=== PATIENT | male | born 2000 | race African-American/Black ===

== ENCOUNTER 2025-04-17 08:54 | Inpatient (IN) | payer SELFPAY ==
[2025-04-17] MEDS ORDERED: Milk Of Magnesia 30 ML UDCUP ONE (09:51)
[2025-04-17] MEDS ORDERED: Lidocaine Viscous Sol 2% 15 ml UD Cup ONE (09:51)
[2025-04-17 10:18] LABS: #Basophils 0.03 10x3/uL (0.0-0.2); #Eosinophils 0.19 10x3/uL (0.0-0.5); #Monocytes 0.40 10x3/uL (0.0-1.1); #Neutrophils 2.97 10x3/uL (1.5-8.4); %Basophils 0.6 % (0.0-2.0); %Eosinophils 3.8 % (0.0-6.0); %Lymphocytes 28.4 % (18.0-47.0); %Monocytes 7.9 % (0.0-10.0); %Neutrophils 58.9 % (40.0-75.0); Hematocrit 49.4 % (38.8-50.0); Hemoglobin 16.6 g/dL (13.5-17.5); Mean Corpuscular Hemoglobin 29.3 pg (27.0-33.0); Mean Corpuscular Volume 87.3 fL (81.2-95.1); Platelet Count 264 10x3/uL (150-450); Red Blood Cell (RBC) Count 5.66 10x6/uL (4.32-5.72); White Blood Cell (WBC) Count 5.04 10x3/uL (3.5-10.5)
[2025-04-17 10:40] LABS: ALT (SGPT) 633 U/L (Less than 45); AST (SGOT) 412 U/L (11-34); Albumin 4.0 g/dL (3.1-4.5); Alkaline Phosphatase 197 U/L (40-110); Anion Gap 14 mmol/L (10-20); BUN (Urea Nitrogen) 15 mg/dL (8.9-20.6); Bilirubin, Total 3.1 mg/dL (0.3-1.2); Calc. Creatinine Clearance 0 mL/min (70-130); Calcium 9.6 mg/dL (7.8-10.44); Carbon Dioxide 25 mmol/L (22-29); Chloride 104 mmol/L (98-107); Globulin 3.6 g/dL (2.4-3.5); Glucose 87 mg/dL (70-105); Potassium 4.4 mmol/L (3.5-5.1); Sodium 139 mmol/L (136-145); Troponin I Less than 0.010 ng/mL (< 0.028)
[2025-04-17 12:17] LABS: Hep B Surf Ag Non-Reactive S/CO (NonReactive)
[2025-04-17 14:41] LABS: Acetaminophen Less than 10 mcg/mL (Less than 10); CK (CPK) 111 U/L (30-200); Lipase 80 U/L (8-78); Salicylate Less than 8.0 mg/dL (Less than 8.0)
[2025-04-17 15:03] LABS: D-Dimer Test 0.28 mcg/mL (0.19-0.50); INR-International Normal Ratio 1.0; PTT 28.5 sec (22.0-33.0); Prothrombin Time 11.0 sec (9.5-12.1)
[2025-04-17 15:13] LABS: Hep A IgM AB NONREACTIVE (NonReactive); Hep A IgM S/CO 0.22 S/CO (0-0.79); Hep B Core IgM Index 0.10 S/CO (0-0.79); Hep C IgG Ab NONREACTIVE S/CO (NonReactive); Hep C Index 0.10 S/CO (0-0.79)
[2025-04-17] MEDS ORDERED: Senokot S 8.6-50 MG TAB PO PRN (15:47)
[2025-04-17] MEDS ORDERED: Melatonin 3 MG TAB PO PRN (15:47)
[2025-04-17] MEDS ORDERED: Electrolyte Replacement Protocol 1 EACH FS SCH (16:00)
[2025-04-17 16:59] LABS: HIV (1/2) Antibody/Antigen NONREACTIVE (NonReactive); HIV 1/2 INDEX 0.05 S/CO (<1.00)
[2025-04-17 17:27] VITALS: BMI 26.8
[2025-04-17] MEDS: Ketorolac Tromethamine 30 MG (1 mL) VIAL IVP PRN (18:04)
[2025-04-18 06:14] LABS: #Basophils 0.04 10x3/uL (0.0-0.2); #Eosinophils 0.17 10x3/uL (0.0-0.5); #Monocytes 0.38 10x3/uL (0.0-1.1); #Neutrophils 2.32 10x3/uL (1.5-8.4); %Basophils 0.9 % (0.0-2.0); %Eosinophils 3.8 % (0.0-6.0); %Lymphocytes 35.0 % (18.0-47.0); %Monocytes 8.5 % (0.0-10.0); %Neutrophils 51.6 % (40.0-75.0); Hematocrit 47.7 % (38.8-50.0); Hemoglobin 15.7 g/dL (13.5-17.5); Mean Corpuscular Hemoglobin 29.0 pg (27.0-33.0); Mean Corpuscular Volume 88.0 fL (81.2-95.1); Platelet Count 219 10x3/uL (150-450); Red Blood Cell (RBC) Count 5.42 10x6/uL (4.32-5.72); White Blood Cell (WBC) Count 4.49 10x3/uL (3.5-10.5)
[2025-04-18 06:30] LABS: ALT (SGPT) 465 U/L (Less than 45); AST (SGOT) 260 U/L (11-34); Albumin 3.4 g/dL (3.1-4.5); Alkaline Phosphatase 165 U/L (40-110); Anion Gap 10 mmol/L (10-20); BUN (Urea Nitrogen) 14 mg/dL (8.9-20.6); Bilirubin, Total 1.8 mg/dL (0.3-1.2); Calc. Creatinine Clearance 125 mL/min (70-130); Calcium 9.1 mg/dL (7.8-10.44); Carbon Dioxide 30 mmol/L (22-29); Chloride 103 mmol/L (98-107); Globulin 3.1 g/dL (2.4-3.5); Glucose 100 mg/dL (70-105); Iron 93 ug/dL (65-175); Iron 94 ug/dL (65-175); Iron Binding Capacity, Total 293 mcg/dL (261-462); Iron Binding Capacity, Total 294 mcg/dL (261-462); Potassium 3.9 mmol/L (3.5-5.1); Sodium 139 mmol/L (136-145)
[2025-04-18] MEDS: Enoxaparin 40 MG (0.4 mL) SYRINGE SC SCH (08:58)
[2025-04-18 13:21] LABS: Immunoglob - A (Total IgA) 157 mg/dL (63-484); Immunoglob - G (Total IgG) 1182 mg/dL (540-1822); Immunoglob - M (Total IgM) 104 mg/dL (22-240)
[2025-04-18] MEDS: Guaifenesin DM 100-10/5 ML UDCUP PO PRN (17:23)
[2025-04-18] MEDS: Ondansetron PF 4 MG/2 ML Vial IVP PRN (20:45)
[2025-04-18] MEDS: Milk Of Magnesia 30 ML UDCUP PO SCH ×2 (21:06→21:32)
[2025-04-18] MEDS: guaiFENesin/Codeine Phosphate 100 mg/10 mg 5 ml UD Cup PO PRN (21:16)
[2025-04-18] MEDS: Pantoprazole 40 MG VIAL IVP SCH (21:17)
[2025-04-19 05:34] LABS: ALT (SGPT) 415 U/L (Less than 45); AST (SGOT) 192 U/L (11-34); Albumin 3.4 g/dL (3.1-4.5); Alkaline Phosphatase 176 U/L (40-110); Anion Gap 12 mmol/L (10-20); BUN (Urea Nitrogen) 10 mg/dL (8.9-20.6); Bilirubin, Total 1.0 mg/dL (0.3-1.2); Calc. Creatinine Clearance 146 mL/min (70-130); Calcium 9.0 mg/dL (7.8-10.44); Carbon Dioxide 27 mmol/L (22-29); Chloride 105 mmol/L (98-107); Globulin 3.1 g/dL (2.4-3.5); Glucose 82 mg/dL (70-105); Potassium 4.0 mmol/L (3.5-5.1); Sodium 140 mmol/L (136-145)
[2025-04-20 04:07] LABS: #Basophils 0.04 10x3/uL (0.0-0.2); #Eosinophils 0.25 10x3/uL (0.0-0.5); #Monocytes 0.52 10x3/uL (0.0-1.1); #Neutrophils 4.41 10x3/uL (1.5-8.4); %Basophils 0.6 % (0.0-2.0); %Eosinophils 3.5 % (0.0-6.0); %Lymphocytes 27.7 % (18.0-47.0); %Monocytes 7.2 % (0.0-10.0); %Neutrophils 60.9 % (40.0-75.0); Hematocrit 44.2 % (38.8-50.0); Hemoglobin 15.0 g/dL (13.5-17.5); Mean Corpuscular Hemoglobin 29.5 pg (27.0-33.0); Mean Corpuscular Volume 87.0 fL (81.2-95.1); Platelet Count 208 10x3/uL (150-450); Red Blood Cell (RBC) Count 5.08 10x6/uL (4.32-5.72); White Blood Cell (WBC) Count 7.23 10x3/uL (3.5-10.5)
[2025-04-20 04:28] LABS: ALT (SGPT) 344 U/L (Less than 45); AST (SGOT) 126 U/L (11-34); Albumin 3.3 g/dL (3.1-4.5); Alkaline Phosphatase 159 U/L (40-110); Anion Gap 11 mmol/L (10-20); BUN (Urea Nitrogen) 8 mg/dL (8.9-20.6); Bilirubin, Total 0.6 mg/dL (0.3-1.2); Calc. Creatinine Clearance 123 mL/min (70-130); Calcium 8.8 mg/dL (7.8-10.44); Carbon Dioxide 30 mmol/L (22-29); Chloride 103 mmol/L (98-107); Globulin 3.0 g/dL (2.4-3.5); Glucose 130 mg/dL (70-105); Potassium 4.1 mmol/L (3.5-5.1); Sodium 140 mmol/L (136-145)
[2025-04-20 10:37] LABS: CMV IgM AB Less than 30.0 AU/mL (0.0-29.9)
[2025-04-20 22:41] VITALS: BP 150/86; TEMP 98.6
[2025-04-21 17:38] LABS: Smooth Muscle Total ABS 8.0 Units (0-19)
[2025-04-22 11:37] LABS: ANA Symphony (Qualitative) Negative (Negative); ANA Symphony (Quantitative) 0.2 Ratio (< 0.7 Negative); EliA Vaculitis New Method **** NEW METHOD ****; Mitochondrial Ab 1.0 U/mL (<4 Negative); dsDNA IgG Antibody 1.4 IU/mL (<10 Negative)
[2025-04-22 12:14] LABS: Epstein Barr Virus PCR Negative (Negative)
== END 2025-04-20 12:15 | disposition home or self-care (01) | DRG 948 ==
LOC: CSHERS 08:54 → CSHTELE 14:36
PROVIDERS: ADMIT Student in an Organized Health Care Education/Training Program; ATTEND Family Medicine
DX: R74.01 Elevation of levels of liver transaminase levels (principal); E80.6 Other disorders of bilirubin metabolism; R10.13 Epigastric pain; R07.9 Chest pain, unspecified; F41.9 Anxiety disorder, unspecified; J45.909 Unspecified asthma, uncomplicated; F17.290 Nicotine dependence, other tobacco product, uncomplicated; R06.02 Shortness of breath
CPT/HCPCS: 36415; 71046; 74181; 76376; 76705; 80053; 80074; 80307; 82103; 82390; 82550; 82728; 83516; 83540; 83550; 83690; 84484; 85025; 85379; 85610; 85730; 86015; 86038; 86225; 86645; 87389; 87798; 93005; 94760; J1650; J1885; J2470; J2550; J7120; S8037